=== PATIENT | male | born 1970 | race Caucasian/White ===

== ENCOUNTER → 2017-03-08 17:41 | Outpatient (CLI) | payer MEDICAID, SELFPAY | PROVIDERS: Family Provider Family Medicine; PCP Family Medicine; Visit Provider Psychiatry & Neurology Neurology | DX: R51 Headache (principal) ==

== ENCOUNTER → 2017-07-15 08:00 | Outpatient (CLI) | payer MEDICAID, SELFPAY ==
--- NOTE | 2017-07-15 16:45 | CT_ITS ---
STUDY: CT BRAIN WITHOUT CONTRAST REASON FOR EXAM: Male, 46 years old. Persistent headache RADIATION DOSAGE (If Supplied By Facility): CTDIvol = ( 44.99 ) mGy, DLP = ( 812.98 ) mGycm TECHNIQUE: Transaxial CT imaging of the brain was performed without administration of intravenous contrast material. Sagittal and coronal images are reformatted. Individualized dose optimization techniques were used for this CT. COMPARISON: None. FINDINGS: Normal soft tissue structures. Normal calvarium. Normal size ventricles and extra-axial spaces for the patient's age. Normal white matter tracts of the cerebral hemispheres. Normal basal ganglia and thalami. Normal brainstem. Normal cerebellum. There is no intracranial hemorrhage. There are no findings of an acute ischemic infarction. Normal visualized paranasal sinuses. CT/Brain/Head without Contrast IMPRESSION: Normal unenhanced CT scan of the brain. No acute intracranial process. Electronically Signed: Arie Stover DO at 9:27 EDT , Service support ,
== END ==
PROVIDERS: Family Provider Family Medicine; PCP Family Medicine; Visit Provider Psychiatry & Neurology Neurology
DX: R51 Headache (principal)
CPT/HCPCS: 70450

== ENCOUNTER 2019-07-23 14:30 | Outpatient (RCR) | payer MEDICAID, SELFPAY ==
--- NOTE | 2019-07-07 09:47 | HP.PTEVAL_ITS ---
Patient's Visit Information CYNTHIA CLEMENTS is a 48 year old M referred to Physical Therapy by Dr. Subhash Montgomery MD with a diagnosis of R biceps femoris strain. Date of Evaluation: 07/02/19 Physical Therapist: Fco Kinney DPT - Visit Plan Frequency: 2x /Week Duration: 4 Weeks Plan: Start with light HS stretching, REIL, prone prop, foam rolling to HS. May add in US to biceps femoris muscle belly to calm symptoms as well. - Subjective Pt. is here today for his initial evaluation with diagnosis of hamstring strain. Pt. 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 Pt. had previously hurt his back and was lifting akwardly adn hurt his HS. Pt. reports has increased pain with sitting and bending over. Walking is virtually painless, but lifting at work in painfull and is unable to sit for any length of time. Pt. reports no N/T in either LE, no sudden weakness, but has sharp pain at posterior thigh. No low back pain, no pain radiating down his legs. No L sided pain. Pt. is back to work, but has altered his lifting to accomedate. 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 Pt. is hopeful to reduce his symptoms in order to get back to all recreational and work activities without increase in symptoms. - Pain Posterior R thigh Pain Intensity (Out of 10): 4 Pain Intensity Range: 2, 8 - Objective POSTURE: Pt. has good posture in stance, slight FH and slight rounded shoulders. Pt. has slight wt. this to L side. PALPATION: Pt. has tenderness at lateral HS (biceps femoris muscle belly). Pt. did not has much medial HS tenderness. No origin pain. No gluteal pain, mild low back pain (minimal). Pt. had hypomobility noted at L3-L5 with spring testing. NEURO: normal sensation noted throughout bilateral LEs, normal DTR of BLEs. ROM: RLE- ankle normal ROM, knee ROM0 full no issues, hip- normal no increase in symptoms, Pt. has tight HS and pain with HS stretching, but also has pain with sciatic nerve glides. LUMBAR SPINE: flexion min/mod loss increase NW, Extension- min loss NE, SB nill loss NE, rotation nil loss NE. MMT: Pt. has good strength throughout BLEs, mild increase in symptoms with HS in sitting, no pain with HS testing in prone. GAIT: Pt. has normal gait pattern without increase in symptoms. STAIRS: normal without increase in symptoms. - Special Tests L/S Slump test left side: Negative L/S Slump test right side: Positive L/S Left Straight Leg Raise: Negative L/S Right Straight Leg Raise: Positive Lumbar Standing: Flexion - Mechanical Response: No effect Lumbar Standing: Flexion - Symptoms During Testing: No effect Lumbar Standing: Flexion - Symptoms After Testing: No effect Lumbar Standing: Extension - Mechanical Response: Increases motion Lumbar Standing: Extension - Symptoms During Testing: Decreases Lumbar Standing: Extension - Symptoms After Testing: No better R Hip Scour: Negative R Hip OLEG - Intraarticular Pathology: Negative R Hip FADDIR - Labrum: Negative R Hip Jeanne - IT Band: Negative - Goals Goal 1:: LTG: Pt. to be I with HEP. Goal Time Frame: 4-6 Weeks Goal 2:: STG: Pt. to be able to sitting for unlimited amount of time without increase in symptoms. Goal Time Frame: 2-4 Weeks Goal 3:: STG: Pt. to have no pain with rising from sitting position. Goal Time Frame: 2-4 Weeks Goal 4:: LTG: Pt. to have full HS length in 90/90 positioning without increase i n symptoms. 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 Goal Time Frame: 4-6 Weeks Goal 6:: LTG: Pt. to demonstrate proper lifting mechanics without increase in symptoms. Goal Time Frame: 4-6 Weeks - Rehabilitation Potential Physical Therapy Diagnosis: Pt. has signs and symptoms consistent with R posterior leg pain. Pt. has pain in his lateral HS. Pt. has increased pain with sitting and increased pain with slump testing. I can not fully rule out radiculopathy, but will treat both simultaneously. I would like him to start with REIL and prone prone, but also add in light HS stretching, foam rolling. Pt. consents this plan. Rehabilitation Potential: Excellent - Anticipated Interventions Patient/Client Instruction: Educate patient on: Condition, Plan of Care, Risk Factors, Benefits of Fitness Program For the Purpose of:: To facilitate caregiver knowledge, To improve self management, To prevent re-injury, To improve ability to perform tasks related to life management, To improve tolerance to ADL's Therapeutic Exercise to Include: Strength training, Power training, Body mechanics, Postural training, Flexibilty training, Passive ROM, Active ROM, Dynamic Lumbar Stabilization, Jose Exercises For the Purpose of:: To decrease pain, To decrease swelling/inflammation, To increase ROM, To improve nutrient delivery to tissue, To increase oxygenation perfusion, To improve muscle performance and motor function, To improve ability to perform ADL's, To improve gait and locomotor functions, To improve health of tissue, To decrease soft tissue restriction, To increase flexibility/ROM Manual Therapy Techniques to Include: Mobilization, Passive ROM, Functional dry needling, Soft tissue mobilization For the Purpose of:: To decrease pain, To decrease swelling/inflammation, To increase ROM, To improve nutrient delivery to tissue, To increase oxygenation perfusion, To improve health of tissue, To decrease soft tissue restriction Ultrasound (thermal/non thermal): Yes For the Purpose of:: To decrease pain, To decrease swelling/inflammation, To increase ROM, To improve nutrient delivery to tissue, To increase oxygenation perfusion, To improve muscle performance and motor function Thank you for the opportunity to evaluate your patient. For Medicare and Medicare HMO plans, please review the plan of care and approve it. It will need to be FAXED BACK to us at [phone] for Medicare purposes. For Medicare only, by signing this I certify the plan of care. Please let me know if there are questions or concerns regarding this plan of care. Physician Signature: Date:
--- NOTE | 2019-07-26 09:57 | HP.PTREVAL ---
Dr. Subhash Montgomery MD, It has been my pleasure to treat CYNTHIA CLEMENTS over the last 4 visits for R biceps femoris strain. Please see the progress note below for an update on the physical therapy plan of care! Subjective: Pt. reports I am defintley better with sitting and bending down, but I still have pain with getting up. Pt. reports he is ordering a kneeling chair and wants to try this out before returning to physician. Objective/Function: Pt. tolerated all PT withotu adverse reaction. pt. has good ROM and good strength. Pt. is tight into lumbar extension, HS light is tight and slightly sore as well. Pt. is not painful to palpation of HS today. Pt. is going to try his kneeling chiar at home, and if not better in a week or so, call his physician to follow up. I educated for him to continue with his exercises until then as well. Pt. consents. Plan Plan: Pt. to try exercises on his own for 1-2 weeks then follow up with PT or physician if not feeling better. Goals Goal 1:: LTG: Pt. to be I with HEP. Goal Time Frame: 4-6 Weeks Goal Progress: Goal Met Goal 2:: STG: Pt. to be able to sitting for unlimited amount of time without increase in symptoms. Goal Time Frame: 2-4 Weeks Goal Progress: Progressing Goal 3:: STG: Pt. to have no pain with rising from sitting position. Goal Time Frame: 2-4 Weeks Goal Progress: Progressing Goal 4:: LTG: Pt. to have full HS length in 90/90 positioning without increase in symptoms. 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 Goal Time Frame: 4-6 Weeks Goal Progress: Progressing Goal 6:: LTG: Pt. to demonstrate proper lifting mechanics without increase in symptoms. Goal Time Frame: 4-6 Weeks Goal Progress: Goal Met Anticipated Interventions Patient/Client Instruction: Educate patient on: Condition, Plan of Care, Risk Factors, Benefits of Fitness Program For the Purpose of:: To facilitate caregiver knowledge, To improve self management, To prevent re-injury, To improve ability to perform tasks related to life management, To improve tolerance to ADL's Therapeutic Exercise to Include: Strength training, Power training, Body mechanics, Postural training, Flexibilty training, Passive ROM, Active ROM, Dynamic Lumbar Stabilization, Jose Exercises For the Purpose of:: To decrease pain, To decrease swelling/inflammation, To increase ROM, To improve nutrient delivery to tissue, To increase oxygenation perfusion, To improve muscle performance and motor function, To improve ability to perform ADL's, To improve gait and locomotor functions, To improve health of tissue, To decrease soft tissue restriction, To increase flexibility/ROM Manual Therapy Techniques to Include: Mobilization, Passive ROM, Functional dry needling, Soft tissue mobilization For the Purpose of:: To decrease pain, To decrease swelling/inflammation, To increase ROM, To improve nutrient delivery to tissue, To increase oxygenation perfusion, To improve health of tissue, To decrease soft tissue restriction Ultrasound (thermal/non thermal): Yes For the Purpose of:: To decrease pain, To decrease swelling/inflammation, To increase ROM, To improve nutrient delivery to tissue, To increase oxygenation perfusion, To improve muscle performance and motor function Please do not hesitate to contact me at [phone] by phone or if you have questions or concerns regarding this new plan of care! Sincerely, Fco Kinney DPT
--- NOTE | 2020-01-11 08:56 | HP.PT.NRP ---
CYNTHIA CLEMENTS was seen in my office for initial evaluation on 07/02/19. The following Plan of Care was established for this patient: Initial Frequency: 2x /Week Initial Duration: 4 Weeks Patient/Client Instruction: Educate patient on: Condition, Plan of Care, Risk Factors, Benefits of Fitness Program For the Purpose of:: To facilitate caregiver knowledge, To improve self management, To prevent re-injury, To improve ability to perform tasks related to life management, To improve tolerance to ADL's Therapeutic Exercise to Include: Strength training, Power training, Body mechanics, Postural training, Flexibilty training, Passive ROM, Active ROM, Dynamic Lumbar Stabilization, Jose Exercises For the Purpose of:: To decrease pain, To decrease swelling/inflammation, To increase ROM, To improve nutrient delivery to tissue, To increase oxygenation perfusion, To improve muscle performance and motor function, To improve ability to perform ADL's, To improve gait and locomotor functions, To improve health of tissue, To decrease soft tissue restriction, To increase flexibility/ROM Manual Therapy Techniques to Include: Mobilization, Passive ROM, Functional dry needling, Soft tissue mobilization For the Purpose of:: To decrease pain, To decrease swelling/inflammation, To increase ROM, To improve nutrient delivery to tissue, To increase oxygenation perfusion, To improve health of tissue, To decrease soft tissue restriction Ultrasound (thermal/non thermal): Yes For the Purpose of:: To decrease pain, To decrease swelling/inflammation, To increase ROM, To improve nutrient delivery to tissue, To increase oxygenation perfusion, To improve muscle performance and motor function This patient was last seen in our office 07/23/19. Pertinent comments regarding their Physical therapy will appear below: Pt. was seen for his leg pain, strain. Pt. was treated in PT with stretching and lumbar extension. Pt. was to trial on own and follow up with PT as needed. Pt. has not been seen in several weeks and will be DC from PT at this point in time. At this point I will be discontinuing this patient from physical therapy. I would be happy to see this patient again in the future if found appropriate by the physician. Thank you! Fco Kinney, VASUT
== END 2019-07-23 19:00 | disposition home or self-care (01) ==
LOC: PT 14:30
PROVIDERS: PCP Family Medicine; Referring Provider Family Medicine; Visit Provider Family Medicine
DX: S46.211D Strain of muscle, fascia and tendon of other parts of biceps, right arm, subsequent encounter (principal)
CPT/HCPCS: 97110; 97161

== ENCOUNTER → 2019-08-24 10:46 | Outpatient (CLI) | payer MEDICAID, SELFPAY ==
--- NOTE | 2019-08-24 10:50 | RAD_ITS ---
STUDY: X-RAY - LUMBAR SPINE REASON FOR EXAM: Male, 48 years old patient with low back pain and bilateral leg pain since April TECHNIQUE: 5 view(s) of the lumbar spine were obtained. COMPARISON: None FINDINGS: Normal lumbar lordosis. There is no substantial scoliosis. There is a normal alignment of the vertebrae. Normal vertebral bodies and endplates. There is degenerative disc disease at T10-11. The lumbar disc spaces are within normal limits. There is no demonstrated fracture. There is no obvious organomegaly, mass, dilated bowel or pathologic calcifications. RAD/L/S Spine Min 4 Views IMPRESSION: No radiographic evidence of acute compression or displaced fracture. Electronically Signed: Hailey Harris MD at 5:55 EDT , Service support ,
== END ==
PROVIDERS: PCP Family Medicine; Referring Provider Family Medicine; Visit Provider Family Medicine
DX: M54.9 Dorsalgia, unspecified (principal)
CPT/HCPCS: 72110

== ENCOUNTER → 2019-12-22 16:58 | Outpatient (CLI) | payer MEDICAID, SELFPAY | PROVIDERS: PCP Family Medicine; Referring Provider Family Medicine; Visit Provider Family Medicine | DX: Z20.828 Contact with and (suspected) exposure to other viral communicable diseases (principal) | CPT/HCPCS: 87635; U0003 ==

== ENCOUNTER 2021-10-26 16:48 | Emergency (ER) | payer MEDICAID, SELFPAY ==
[2021-10-26 16:50] VITALS: BP 165/104; PULSE 118; RESP 16; TEMP 36.8; O2SAT 98; BMI 21.9
--- NOTE | 2021-10-26 18:17 | CT_ITS ---
STUDY: CT ABDOMEN AND PELVIS WITH CONTRAST REASON FOR EXAM: Male, 51 years old. Pain RADIATION DOSAGE (If Supplied By Facility): CTDIvol = ( 9.28 ) mGy, DLP = ( 471.21 ) mGycm TECHNIQUE: Transaxial images were obtained from the dome of the diaphragm to the symphysis pubis without oral contrast. IV 100mL Isovue-370 was administered. Sagittal and coronal images were reconstructed. Individualized dose optimization techniques were used for this CT. COMPARISON: None. FINDINGS: Minor interstitial thickening at the lung bases.. The visualized portions of the heart are within normal limits. Normal liver. Normal gallbladder and extrahepatic biliary system. Normal spleen. Normal pancreas. Normal bilateral adrenal glands. Normal right kidney. Tiny nonobstructing left renal calculus without evidence for obstruction or mass. Concentric thickening of the berg of stomach which may be consistent with nonspecific gastritis. Normal small intestine. Diffuse fecal retention noted within the colon.. No evidence for acute appendicitis. Normal abdominal aorta. Normal inferior vena cava. Normal retroperitoneum. Incompletely distended thick-walled bladder likely of no significance Small bilateral fat-containing inguinal hernias. Normal osseous structures. CT/Abdomen/Pelvis W IV Cont ONLY IMPRESSION: Findings which may be consistent with nonspecific gastritis. No evidence for small bowel obstruction or acute appendicitis. Left nephrolithiasis without evidence for renal obstruction Electronically Signed: Irvin Goldman MD at 19:50 EDT ,
--- NOTE | 2021-10-26 18:18 | EDS_ITS ---
HPI HPI - GI History of Present Illness Chief Complaint: Abd Pain Narrative Narrative: Patient denies significant past medical history presents with abdominal pain that is crampy in nature since 11:00 last evening. It is sometimes worse when he lays flat. He states he is not having any other symptoms. No fevers or chills. No nausea or vomiting. No diarrhea. He had a small bowel movement earlier today. He presents because of the pain is mainly on the right side. He denies any dysuria or hematuria. No other symptoms. No prior abdominal surgeries. PFSH PFSH Medical History no medical history Allergy/AdvReac Type Severity Reaction Status Date / Time No Known Allergies Allergy Verified 10/26/21 16:51 Surgical History no surgical history Social History Smoking Status: Never smoker ROS ROS ED ROS Narrative Constitutional: No fever, no chills. HEENT: No sore throat. No neck pain. No loss of vision. No rhinorrhea. Cardiovascular: No chest pain. No palpitations. No pedal edema. Respiratory: No cough, no shortness of breath. Abdominal: Positive crampy abdominal pain. No nausea. No vomiting. No diarrhea or problems with bowel movements. Genitourinary: No dysuria. No hematuria. Musculoskeletal: No myalgias. No arthralgias. Neurologic: No headaches. No dizziness. No lightheadedness. Skin: No rash. No change in color. Psychiatric: No depression. No anxiety. EXAM Physical Exam Narrative Exam Narrative: Afebrile. Vital signs noted. HEENT: Normocephalic. Atraumatic. PERRL, EOMI. Neck soft and supple. No point tenderness or step off. Cardiovascular: Positive tachycardia. No murmurs, rubs, or gallops appreciated. Respiratory: No tachypnea. Lungs clear to auscultation bilaterally. Gastrointestinal: Abdomen soft, with tenderness along the right flank, with normoactive bowel sounds. No rebound or guarding. Negative Maxwell sign. Neurological: Awake. Alert. Nonfocal, nonlateralizing. Skin: No rash. Normal color. No pallor. Musculoskeletal: No pedal edema. Full range of motion extremities. Const Vital Signs: 10/26/21 16:50 Temperature 98.3 F Temperature Source Temporal Pulse Rate 118 H Respiratory Rate 16 Blood Pressure 165/104 H Blood Pressure Mean 124 Pulse Ox 98 Oxygen Delivery Method Room Air MDM MDM MDM Narrative Medical decision making narrative: Patient was bolused normal saline 1 L intravenously and administered morphine and ondansetron. Comprehensive work-up was pursued. CT imaging with IV contrast was obtained. He has slightly elevated white count of 12.4 which I think is nonspecific, hemoglobin normal at 15.5 with hematocrit 46.2. Platelet count normal at 286. CMP is grossly normal except for AST of 14, slightly low. Urinalysis is negative for infection but ketones slightly elevated at 50. CT of the abdomen and pelvis shows no evidence of appendicitis. There is diffuse fecal retention. Additionally there was concern for gastritis but the patient has no evidence of nausea or vomiting. He was told that he could use [id number] Pepcid to treat the gastritis as needed. I am reluctant to give him Bentyl for his abdominal cramping given the diffuse fecal retention noted in his colon. He will use [id number] stool softeners and a gentle laxative such as MiraLAX. At this point in time, I feel he can be discharged safely home with follow-up. Return instructions to the emergency department were reviewed. Disposition is discharged home in stable condition. Lab Data Attestation: I reviewed the patient's lab results. Labs: Laboratory Results - last 24 hr 10/26/21 10/26/21 10/26/21 17:43 18:00 18:00 WBC 12.4 H RBC 4.58 L Hgb 15.5 Hct 46.2 MCV 100.9 H MCH 33.8 H MCHC 33.5 RDW Std Deviation 43.9 RDW Coeff of Denys 11.9 Plt Count 286 MPV 8.5 Immature Gran % (Auto) 0.200 Neut % (Auto) 71.5 H Lymph % (Auto) 18.3 L [place] % (Auto) 8.2 Eos % (Auto) 1.5 Baso % (Auto) 0.3 Absolute Neuts (auto) 8.9 H Absolute Lymphs (auto) 2.27 Nucleated RBC % 0 Sodium 140 Potassium 3.7 Chloride 103 Carbon Dioxide 29.0 Anion Gap 8 BUN 10 Creatinine 0.84 Estim Creat Clear Calc 108.13 Est GFR (MDRD) Af Amer 123 Est GFR (MDRD) Non-Af 102 BUN/Creatinine Ratio 11.8 Glucose 96 Calcium 9.5 Total Bilirubin 0.90 AST 14 L ALT 20 Alkaline Phosphatase 91 Total Protein 8.1 Albumin 3.9 Globulin 4.2 Albumin/Globulin Ratio 0.9 Urine Color Yellow Urine Clarity Clear Urine pH 6.0 Ur Specific [place] 1.015 Urine Protein Negative Urine Glucose (UA) Normal Urine Ketones 50 H Urine Occult Blood Negative Urine Nitrite Negative Urine Bilirubin Negative Urine Urobilinogen Normal Ur Leukocyte Esterase Negative Urine RBC 0 SEEN Urine WBC 0 SEEN Ur Squamous Epith Cells 0 SEEN Urine Bacteria RARE Urine Mucus 0 SEEN Radiography Diagnostic Testing: Clinical Impression(s) from Imaging Studies Abdomen/Pelvis CT 10/26/21 18:17 IMPRESSION: Findings which may be consistent with nonspecific gastritis. No evidence for small bowel obstruction or acute appendicitis. Left nephrolithiasis without evidence for renal obstruction Electronically Signed: Irvin Goldman MD at 19:50 EDT , Discharge Plan Triage Chief Complaint: Abd Pain ED Provider: Cornelius Springer Dx/Rx/DC Orders Clinical Impression: Abdominal pain, Fecal retention Instructions: ED Constipation (Adult), ED Abdominal Pain Unkn Cause Male... Stand Alone Forms: ED Work / School Excuse Primary Care Provider: Subhash Montgomery Referrals: Subhash Montgomery MD [Primary Care Provider] - 1-2 Days if not improving Activity Restrictions/Additional Instructions: Use [id number] stool softeners and a gentle laxative like MiraLAX. Follow-up with your primary care physician. You may need referral to gastroenterology. Disposition Disposition: Home, Self Care
[2021-10-26] MEDS: 0.9% Normal Saline 1,000 ML 1000 ML IV (18:32)
[2021-10-26] MEDS: Ondansetron 4 MG/2 ML Vial IV (18:33)
[2021-10-26] MEDS: Morphine 4 MG/ML Syringe IV (18:33)
[2021-10-26 18:36] LABS: Mucous, Urine 0 SEEN /hpf (<or=2+); Red Blood Cells-Urine 0 SEEN /hpf (0-5); Squamous Epithelial Cells - UA 0 SEEN /hpf (0-5); White Blood Cells 0 SEEN /hpf (0-5)
[2021-10-26 18:45] LABS: Color, Urine Yellow (Yellow); Glucose, Dipstick Normal (Normal); Ketone-Dipstick 50 mg/dl (Negative); Leukocyte Esterase-Dipstick Negative /ul (Negative); Nitrite-Dipstick Negative (Negative); Occult Blood-Urine Negative /ul (Negative); Protein-Dipstick Negative (Negative); Specific Gravity, Urine 1.015 (1.002-1.030); Urine Bilirubin Dipstick Negative (Negative); Urine Clarity Clear (Clear); Urine Urobilinogen Normal (Normal)
[2021-10-26 18:45] LABS: Absolute Lymphocyte Count 2.27 X10^3/uL (0.83-4.51); Absolute Neutrophil Count 8.9 X10^3/uL (2.0-7.7); Basophil# 0.04 X10^3/uL; Basophil% 0.3 % (0-1); Eosinophil# 0.18 X10^3/uL; Eosinophils% 1.5 % (0-5); Hematocrit 46.2 % (40-54); Hemoglobin 15.5 g/dL (13.0-16.5); Lymphocyte # 2.27 X10^3/ul (0.83-4.51); Lymphocyte % 18.3 % (19-41); Mean Corp Hgb Conc 33.5 g/dL (32-36); Mean Corpuscular Hgb 33.8 pg (27.0-32.0); Mean Corpuscular Volume 100.9 fL (80-94); Mean Platelet Vol. 8.5 fl (6.2-12.0); Monocyte# 1.01 X10^3/uL; Monocyte% 8.2 % (0-10); NRBC Flagged by Analyzer 0 % (0-5); Neutrophil # 8.85 X10^3/uL (2.7-7.7); Neutrophil % 71.5 % (47-70); Platelet Count 286 K/mm3 (150-450); RBC Distribution Width CV 11.9 % (11.6-14.6); RBC Distribution Width SD 43.9 fl (35.1-43.9); Red Blood Count 4.58 M/mm3 (4.6-6.2); White Blood Count 12.4 K/mm3 (4.4-11.0)
[2021-10-26 18:55] LABS: Bacteria RARE /hpf (None Seen)
[2021-10-26 19:02] LABS: ALB/GLOB Ratio 0.9 RATIO (0.9-2.4); AST(SGOT) 14 U/L (15-37); Alanine Aminotransfer ALT/SGPT 20 U/L (16-61); Albumin, Serum 3.9 g/dL (3.2-5.0); Alkaline Phosphatase 91 U/L (45-117); Anion Gap 8 (5-15); BUN 10 mg/dL (7-18); BUN/Creat Ratio 11.8 RATIO (10-20); Calcium,Total 9.5 mg/dL (8.5-10.1); Chloride 103 mmol/L (98-107); Creatinine, Serum 0.84 mg/dL (0.70-1.30); EST Glomerular Filtration Rate 102 mL/min (>60); Est Glom Filt Rate - Afr Amer 123 mL/min (>60); Estimated Creatinine Clearance 108.13 ml/min; Globulin 4.2 g/dL (2.2-4.2); Glucose 96 mg/dL (74-106); Potassium 3.7 mmol/L (3.5-5.1); Protein, Total 8.1 g/dL (6.4-8.2); Sodium Level 140 mmol/L (136-145)
[2021-10-26 20:22] VITALS: BP 128/78; PULSE 78; RESP 14; TEMP 36.4; O2SAT 99
== END 2021-10-26 20:34 | disposition home or self-care (01) ==
PROVIDERS: Emergency Provider Emergency Medicine; PCP Family Medicine; Visit Provider Emergency Medicine
DX: K59.00 Constipation, unspecified (principal); R10.9 Unspecified abdominal pain
CPT/HCPCS: 74177; 80053; 81001; 85025; 96361; 96374; 96375; 99283; J7030; Q9967; A4216; J2405